=== PATIENT | male | born 1950 | race African-American/Black ===

== ENCOUNTER 2020-12-23 06:39 | Observation (INO) | payer OTHER ==
[2020-12-23] MEDS ORDERED: ASPIRIN 81 MG CHEWABLE TABLETS PO ONE (07:55)
[2020-12-23] MEDS ORDERED: ASPIRIN 81 MG CHEWABLE TABLETS ONE (08:02)
[2020-12-23 09:15] LABS: BASO % 0.5 % (0-2.0); EOS % 0.1 % (0-4.5); HEMATOCRIT 40.3 % (35.4-49); HEMOGLOBIN 14.1 GM/dL (11.7-16.9); LYMPH % 21.8 % (8-40); MCHC 34.9 g/dl (32.0-35.9); MEAN PLT VOLUME 7.2 fl (7.5-11.1); MONO % 4.9 % (3.8-10.2); NEUT % 72.7 % (42.8-82.8); PLATELET COUNT 236 10^3/uL (134-434); RBC 4.69 M/mm3 (4.00-5.60); RDW 14.2 % (11.9-15.9); WHITE BLOOD COUNT 7.7 K/mm3 (4.0-10.0)
[2020-12-23 09:21] LABS: INR 1.12 (0.83-1.09); PROTHROMBIN TIME (PATIENT) 13.8 SEC (9.7-13.0)
[2020-12-23 09:23] LABS: ACTIVATED PTT 33.2 SECONDS (25.2-36.5)
[2020-12-23 09:43] LABS: CALCIUM 9.3 mg/dL (8.5-10.1)
[2020-12-23 09:44] LABS: ALBUMIN 4.2 g/dl (3.4-5.0)
[2020-12-23 09:45] LABS: BLOOD UREA NITROGEN 15.8 mg/dL (7-18)
[2020-12-23 09:48] LABS: BILIRUBIN,TOTAL 1.1 mg/dL (0.2-1)
[2020-12-23 09:49] LABS: CREATININE 1.2 mg/dL (0.55-1.3)
[2020-12-23] MEDS ORDERED: methaDONE HCL 10 MG TABLET (FOR DETOX USE ONLY) PO ONE (11:01)
[2020-12-23] MEDS ORDERED: methaDONE HCL 10 MG TABLET ONE (11:09)
[2020-12-23] MEDS ORDERED: TRIMETHOBENZAMIDE HCL 200MG/2ML INJ IM PRN (13:46)
[2020-12-23] MEDS ORDERED: amLODIPine BESYLATE 5 MG TABLET (FP) ONE (14:35)
[2020-12-23] MEDS ORDERED: hydrALAZINE HCL 25 MG TABLET (FP) ONE (14:35)
[2020-12-23] MEDS ORDERED: METOPROLOL TARTRATE 50 MG TABLET (FP) ONE (14:35)
[2020-12-23] MEDS ORDERED: HEPARIN NA (PORCINE) 5,000 UNITS/ML 1ML VIAL ONE (14:36)
[2020-12-23] MEDS: HEPARIN NA (PORCINE) 5,000 UNITS/ML 1ML VIAL SQ SCH ×2 (14:48→21:04)
[2020-12-23] MEDS: METOPROLOL TARTRATE 50 MG TABLET (FP) PO SCH ×2 (14:48→21:04)
[2020-12-23] MEDS: hydrALAZINE HCL 25 MG TABLET (FP) PO SCH ×2 (14:48→21:04)
[2020-12-23] MEDS: amLODIPine BESYLATE 10 MG TABLET (FP) PO SCH (14:48)
[2020-12-23] MEDS ORDERED: ATORVASTATIN CA 20 MG TABLET (FP) PO SCH (22:00)
[2020-12-24] MEDS ORDERED: methaDONE HCL 10 MG TABLET PO SCH (06:00)
[2020-12-24] MEDS: hydrALAZINE HCL 25 MG TABLET (FP) PO SCH ×2 (06:33→13:05)
[2020-12-24] MEDS: HEPARIN NA (PORCINE) 5,000 UNITS/ML 1ML VIAL SQ SCH ×2 (06:35→13:07)
[2020-12-24 06:38] VITALS: BMI 24.2
[2020-12-24] MEDS ORDERED: ASPIRIN COATED 81 MG TABLET.EC PO SCH (10:00)
[2020-12-24] MEDS: amLODIPine BESYLATE 10 MG TABLET (FP) PO SCH (10:21)
[2020-12-24] MEDS: METOPROLOL TARTRATE 50 MG TABLET (FP) PO SCH (10:21)
[2020-12-24 14:58] VITALS: BP 151/77; PULSE 57; TEMP 98.2
== END 2020-12-24 15:57 | disposition home or self-care (01) ==
LOC: JER 06:39 → JERBED 10:23 → UNDOADMOB 10:23 → JERBED 11:52 → J4W 19:55
PROVIDERS: ADMIT Internal Medicine; ATTEND Nurse Practitioner Family
DX: I25.10 Atherosclerotic heart disease of native coronary artery without angina pectoris (principal); F11.90 Opioid use, unspecified, uncomplicated; R94.31 Abnormal electrocardiogram [ECG] [EKG]; R11.2 Nausea with vomiting, unspecified; I10 Essential (primary) hypertension; E78.5 Hyperlipidemia, unspecified
CPT/HCPCS: 36415; 71045-TC-FY; 80053; 80061; 82550; 82553; 83036; 84443; 84484; 85025; 85610; 85730; 93005; 93010; 99285-25; C9803; G0378; J1644; U0003; U0005

== ENCOUNTER 2023-07-29 11:02 | Inpatient (IN) | payer OTHER ==
[2023-07-29 13:08] LABS: BASO % 0.8 % (0-2.0); EOS % 0.4 % (0-4.5); HEMOGLOBIN 13.3 GM/dL (11.7-16.9); LYMPH % 20.6 % (8-40); MCH 28.9 pg (25.7-33.7); MCHC 34.1 g/dl (32.0-35.9); MEAN CELL VOLUME 84.6 fl (80-96); MEAN PLT VOLUME 7.7 fl (7.5-11.1); MONO % 6.5 % (3.8-10.2); NEUT % 71.7 % (42.8-82.8); PLATELET COUNT 252 10^3/uL (134-434); RBC 4.61 M/mm3 (4.00-5.60); RDW 13.9 % (11.9-15.9); WHITE BLOOD COUNT 5.5 K/mm3 (4.0-10.0)
[2023-07-29 13:19] LABS: POTASSIUM 3.8 mmol/L (3.5-5.1)
[2023-07-29 13:22] LABS: ALBUMIN 3.8 g/dl (3.4-5.0); BLOOD UREA NITROGEN 8.4 mg/dL (7-18); CALCIUM 9.6 mg/dL (8.5-10.1)
[2023-07-29 13:23] LABS: MAGNESIUM 2.1 mg/dL (1.8-2.4)
[2023-07-29 13:25] LABS: CREATININE 1.1 mg/dL (0.55-1.3)
[2023-07-29 13:27] LABS: BILIRUBIN,TOTAL 1.1 mg/dL (0.2-1); TOT PROT 8.9 g/dl (6.4-8.2)
[2023-07-29] MEDS ORDERED: NAPH,MB-DB/K PH,MBDB POWDER PACKET ONE (15:16)
[2023-07-29] MEDS: NAPH,MB-DB/K PH,MBDB POWDER PACKET PO ONE (15:51)
[2023-07-29] MEDS: SODIUM CHLORIDE 0.9% 500 ML INFUS.BAG IV ONE (16:01)
[2023-07-29 16:08] LABS: EPI CELLS 20 /uL (0-25.1); HYALINE CASTS 2 /uL (0-3.1); PH,URINE 7.5 (5.0-8.0); URINE APPEARANCE CLEAR; URINE BACTERIA 18 /uL (0-1359); URINE BILIRUBIN NEGATIVE (NEGATIVE); URINE COLOR YELLOW; URINE GLUCOSE (UA) NEGATIVE (NEGATIVE); URINE KETONE 1+ (NEGATIVE); URINE LEUK ESTERASE 1+ (NEGATIVE); URINE NITRITE NEGATIVE (NEGATIVE); URINE PROTEIN TRACE (NEGATIVE); URINE RBC 52 /uL (0-23.9); URINE WBC 154 /uL (0-25.8)
[2023-07-29] MEDS ORDERED: CEFTRIAXONE 1,000 MG in DEXTROSE 5%-WATER - 50 ML IVPB ONE ×2 (17:03→19:00)
[2023-07-29] MEDS: DEXTROSE 5%-0.45% SALINE 1,000 ML IV SCH (17:05)
[2023-07-29] MEDS: CEFTRIAXONE 1 GM in DEXTROSE 5%-WATER - 50 ML IVPB ONE (20:16)
[2023-07-29] MEDS: CEFTRIAXONE 1,000 GM in DEXTROSE 5%-WATER - 50 ML IVPB ONE (20:16)
[2023-07-29] MEDS: hydrALAZINE HCL 25 MG TABLET (FP) PO SCH (21:48)
[2023-07-29] MEDS: METOPROLOL TARTRATE 50 MG TABLET (FP) PO SCH (21:48)
[2023-07-29] MEDS: ATORVASTATIN CA 20 MG TABLET (FP) PO SCH (21:48)
[2023-07-29] MEDS ORDERED: PATIENT'S OWN MEDICATION (NON-FORMULARY) (Metoprolol Tartrate [Metoprolol Tartrate] 100 MG PO SCH (22:00)
[2023-07-30] MEDS: ACETAMINOPHEN 1000 MG/100 ML BAG IVPB ONE (05:46)
[2023-07-30 08:19] LABS: BASO % 0.5 % (0-2.0); EOS % 0.3 % (0-4.5); HEMATOCRIT 38.4 % (35.4-49); HEMOGLOBIN 12.9 GM/dL (11.7-16.9); LYMPH % 27.6 % (8-40); MCH 28.8 pg (25.7-33.7); MCHC 33.7 g/dl (32.0-35.9); MEAN CELL VOLUME 85.6 fl (80-96); MEAN PLT VOLUME 7.6 fl (7.5-11.1); MONO % 10.1 % (3.8-10.2); NEUT % 61.5 % (42.8-82.8); PLATELET COUNT 232 10^3/uL (134-434); RBC 4.49 M/mm3 (4.00-5.60); RDW 13.8 % (11.9-15.9); WHITE BLOOD COUNT 6.3 K/mm3 (4.0-10.0)
[2023-07-30 08:33] LABS: POTASSIUM 3.4 mmol/L (3.5-5.1)
[2023-07-30 08:54] LABS: CALCIUM 8.9 mg/dL (8.5-10.1)
[2023-07-30 08:55] LABS: ALBUMIN 3.4 g/dl (3.4-5.0); BLOOD UREA NITROGEN 9.5 mg/dL (7-18)
[2023-07-30 08:58] LABS: CREATININE 1.1 mg/dL (0.55-1.3)
[2023-07-30 08:59] LABS: BILIRUBIN,TOTAL 1.2 mg/dL (0.2-1); TOT PROT 8.1 g/dl (6.4-8.2)
[2023-07-30] MEDS: ASPIRIN COATED 81 MG TABLET.EC PO SCH (09:23)
[2023-07-30] MEDS: amLODIPine BESYLATE 10 MG TABLET (FP) PO SCH (09:23)
[2023-07-30] MEDS: ENOXAPARIN NA (PORCINE) 40 MG/0.4 ML DISP.SYRIN SQ SCH (09:23)
[2023-07-30] MEDS ORDERED: methaDONE HCL 10 MG TABLET PO SCH (10:00)
[2023-07-30 14:37] VITALS: BMI 24.2
[2023-07-30] MEDS ORDERED: POTASSIUM CHLORIDE ORAL LIQUID 20 MEQ/15 ML PO ONE (15:49)
[2023-07-30] MEDS: POTASSIUM CHLORIDE ORAL LIQUID 20 MEQ/15 ML PO ONE (18:43)
[2023-07-31] MEDS: ONDANSETRON 4 MG/2 ML VIAL IVPUSH ONE (06:43)
[2023-08-01 15:50] VITALS: BP 143/76; PULSE 61; RESP 18; TEMP 98.4
== END 2023-08-01 17:50 | DRG 897 ==
LOC: JER 11:02 → JERBED 13:29 → J8W 17:40 → UNDODISIN 07-30 19:14
PROVIDERS: ADMIT Internal Medicine; ATTEND Internal Medicine
DX: F11.20 Opioid dependence, uncomplicated (principal); E44.0 Moderate protein-calorie malnutrition; I25.10 Atherosclerotic heart disease of native coronary artery without angina pectoris; I10 Essential (primary) hypertension; E78.5 Hyperlipidemia, unspecified; E83.39 Other disorders of phosphorus metabolism; R62.7 Adult failure to thrive; Z68.24 Body mass index [BMI] 24.0-24.9, adult; W18.30XA Fall on same level, unspecified, initial encounter; Y92.099 Unspecified place in other non-institutional residence as the place of occurrence of the external cause; Y99.9 Unspecified external cause status; Z95.5 Presence of coronary angioplasty implant and graft
CPT/HCPCS: 0241U-QW; 36415; 70450-TC; 71045-TC-FY; 72125-TC; 72170-TC-FY; 80053; 81003; 82550; 82553; 82962; 83735; 84100; 84484; 85025; 87086; 93005; 93010; 93306-TC; 93880-TC; 97116-GP; 97161-GP; 99285-25; J0131

== ENCOUNTER 2023-08-14 12:08 | Emergency (ER) | payer OTHER ==
[2023-08-14 12:50] VITALS: BP 127/73; PULSE 60; RESP 18; TEMP 97.9; BMI 22.8
== END 2023-08-14 17:10 | disposition home or self-care (01) ==
LOC: JER 12:08
DX: Z00.00 Encounter for general adult medical examination without abnormal findings (principal)
CPT/HCPCS: 99283-25